=== PATIENT | male | born 1980 | race American Indian/Alaskan Native ===

== ENCOUNTER 2024-07-14 15:56 | Emergency (ER) | payer SELFPAY ==
[2024-07-14] MEDS: Sodium Chloride 0.9% 1,000 ML IV ONE (16:15)
[2024-07-14 16:21] LABS: BASOPHILS PERCENT AUTO 0.3 % (0.0-1.0); EOSINOPHILS PERCENT AUTO 2.2 % (1.0-3.0); HEMATOCRIT 46.8 % (40.0-54.0); HEMOGLOBIN 15.4 g/dL (14.0-18.0); LYMPHOCYTES PERCENT AUTO 36.2 % (20.5-50.1); MEAN CORPUSCULAR HEMOGLOBIN 31.4 pg (27.0-34.0); MEAN CORPUSCULAR HGB CONC 32.9 g/dL (33.0-35.0); MEAN CORPUSCULAR VOLUME 95.5 fL (80-100); MONOCYTES PERCENT AUTO 5.3 % (2-8); PLATELET COUNT,PLT 281 10^3/uL (150-450); WHITE BLOOD CELL COUNT,WBC 6.4 10^3/uL (5.0-10.0)
[2024-07-14 16:29] LABS: APPEARANCE,URINE CLEAR (CLEAR); BILIRUBIN,URINE NEGATIVE (NEGATIVE); GLUCOSE,URINE NEGATIVE (NEGATIVE); KETONES,URINE NEGATIVE (NEGATIVE); LEUKOCYTE ESTERASE,URINE NEGATIVE (NEGATIVE); NITRITE,URINE NEGATIVE (NEGATIVE); OCCULT BLOOD,URINE NEGATIVE (NEGATIVE); PH,URINE 5.5 (5.0-9.0); PROTEIN,URINE NEGATIVE (NEGATIVE); UROBILINOGEN,URINE 0.2 mg/dL (0.2-1.0)
[2024-07-14 16:30] LABS: COLOR,URINE LIGHT YELLOW (YELLOW)
[2024-07-14] MEDS: Iopamidol 612 MG/ML 100 ML Bottle IVPUSH ONE (16:31)
[2024-07-14 16:32] LABS: AMPHETAMINES,URINE NEGATIVE (NEGATIVE); BARBITURATES,URINE NEGATIVE (NEGATIVE); BENZODIAZEPINE,URINE NEGATIVE (NEGATIVE); MDMA (ECSTASY), URINE NEGATIVE (NEGATIVE); METHADONE,URINE NEGATIVE (NEGATIVE); METHAMPHETAMINES,URINE POSITIVE (NEGATIVE); OPIATES,URINE NEGATIVE (NEGATIVE); OXYCODONE,URINE NEGATIVE (NEGATIVE); PHENCYCLIDINE,URINE NEGATIVE (NEGATIVE); TCA,URINE NEGATIVE (NEGATIVE)
[2024-07-14 16:46] LABS: ALBUMIN 3.5 g/dL (3.4-5.0); ANION GAP 11.7 mEq/L (7-13); BILIRUBIN TOTAL 0.3 mg/dL (0.2-1.0); BUN/CREATININE RATIO 15.5 (No establ ref range); CALCIUM 8.7 mg/dL (8.5-10.1); CREATININE 0.71 mg/dL (0.70-1.30); EST CRCL DRUG DOSING (CG) 137.12 mL/min; MAGNESIUM 2.1 mg/dL (1.8-2.4); POTASSIUM,K 3.7 mmol/L (3.5-5.1)
[2024-07-14 16:47] LABS: LACTIC ACID 1.8 mmol/L (0.4-2.0)
[2024-07-14] MEDS: MVI, Adult with Vitamin K 10 ML, Folic Acid 1 MG, Thiamine 100 MG in Lactated Ringers 1... IV ONE (17:32)
== END 2024-07-14 18:37 | disposition home or self-care (01) ==
LOC: DL.ED 15:56 → MERGE 15:56 → DL.ED 18:37
DX: F10.120 Alcohol abuse with intoxication, uncomplicated (principal); F15.10 Other stimulant abuse, uncomplicated; I10 Essential (primary) hypertension; F17.210 Nicotine dependence, cigarettes, uncomplicated; Z90.49 Acquired absence of other specified parts of digestive tract; Y90.9 Presence of alcohol in blood, level not specified
CPT/HCPCS: 36415; 70450; 71260; 72125; 74177; 80053; 80305; 80307; 81003; 83605; 83690; 83735; 84484; 85025; 93005; 96365; 99284; J3411; J7030; J7120; Q9967; J3490

== ENCOUNTER 2025-07-04 19:40 | Emergency (ER) | payer SELFPAY ==
[2025-07-04] MEDS ORDERED: Sodium Chloride 0.9% 10 ML Syringe FLUSH PRN (20:00)
[2025-07-04 20:24] LABS: BASOPHILS PERCENT AUTO 0.3 % (0.0-1.0); EOSINOPHILS PERCENT AUTO 1.2 % (1.0-3.0); LYMPHOCYTES PERCENT AUTO 21.2 % (20.5-50.1); MONOCYTES PERCENT AUTO 8.6 % (2-8); NEUTROPHILS PERCENT AUTO 68.7 % (42.2-75.2); PLATELET COUNT,PLT 252 10^3/uL (150-450); RED BLOOD CELL COUNT 4.87 10^6/uL (4.6-6.2); WHITE BLOOD CELL COUNT,WBC 6.6 10^3/uL (5.0-10.0)
[2025-07-04 20:41] LABS: AMPHETAMINES,URINE NEGATIVE (NEGATIVE); BARBITURATES,URINE NEGATIVE (NEGATIVE); MDMA (ECSTASY), URINE NEGATIVE (NEGATIVE); METHAMPHETAMINES,URINE POSITIVE (NEGATIVE); OPIATES,URINE NEGATIVE (NEGATIVE); OXYCODONE,URINE NEGATIVE (NEGATIVE); PHENCYCLIDINE,URINE NEGATIVE (NEGATIVE); TCA,URINE NEGATIVE (NEGATIVE)
[2025-07-04 20:48] LABS: LACTIC ACID 1.1 mmol/L (0.4-2.0)
[2025-07-04 20:56] LABS: A/G RATIO 0.9; ALANINE AMINOTRANSFERASE,ALT 152 U/L (16-63); ASPARTATE AMNIOTRANSFERASE,AST 105 U/L (15-37); BILIRUBIN TOTAL 0.5 mg/dL (0.2-1.0); BLOOD UREA NITROGEN,BUN 16 mg/dL (7-18); CARBON DIOXIDE,CO2 28 mmol/L (21-32); CHLORIDE,CL 101 mmol/L (98-107); CREATININE 0.83 mg/dL (0.70-1.30); EST CRCL DRUG DOSING (CG) 107.86 mL/min; POTASSIUM,K 4.7 mmol/L (3.5-5.1); PROTEIN TOTAL,TP 7.5 g/dL (6.4-8.2); SODIUM,NA 137 mmol/L (136-145)
[2025-07-04 20:57] LABS: ESTIMATED GFR 112 mL/min (>=60); ETHANOL BLOOD MEDICAL < 3 mg/dL (0)
[2025-07-04 21:02] LABS: INR 0.9 (0.9-1.2); PTT,PARTIAL THROMBOPLSTIN TIME 23.4 SEC (22.0-34.0)
[2025-07-04 21:32] LABS: GLUCOSE RANDOM 121 mg/dL (70-99)
== END 2025-07-04 21:30 | disposition home or self-care (01) ==
LOC: DL.ED 19:40
DX: R55 Syncope and collapse (principal); I10 Essential (primary) hypertension; Z90.49 Acquired absence of other specified parts of digestive tract
CPT/HCPCS: 36415; 70450; 80053; 80305; 80307; 83605; 83735; 84484; 85025; 85610; 85730; 93005; 93010; 99284; A9270

== ENCOUNTER 2025-08-27 01:25 | Emergency (ER) | payer SELFPAY ==
[2025-08-27] MEDS ORDERED: Sodium Chloride 0.9% 10 ML Syringe FLUSH PRN (01:44)
[2025-08-27 01:54] LABS: BASOPHILS PERCENT AUTO 0.3 % (0.0-1.0); EOSINOPHILS PERCENT AUTO 3.1 % (1.0-3.0); LYMPHOCYTES PERCENT AUTO 40.9 % (20.5-50.1); MONOCYTES PERCENT AUTO 8.5 % (2-8); NEUTROPHILS PERCENT AUTO 47.2 % (42.2-75.2); PLATELET COUNT,PLT 242 10^3/uL (150-450); RED BLOOD CELL COUNT 4.46 10^6/uL (4.6-6.2); WHITE BLOOD CELL COUNT,WBC 6.7 10^3/uL (5.0-10.0)
[2025-08-27 02:05] LABS: A/G RATIO 0.9; ALANINE AMINOTRANSFERASE,ALT 424.0 U/L (16-63); ASPARTATE AMNIOTRANSFERASE,AST 263.0 U/L (15-37); BILIRUBIN TOTAL 0.4 mg/dL (0.2-1.0); BLOOD UREA NITROGEN,BUN 16.0 mg/dL (7-18); CARBON DIOXIDE,CO2 25.0 mmol/L (21-32); CHLORIDE,CL 106.0 mmol/L (98-107); CREATININE 0.83 mg/dL (0.70-1.30); EST CRCL DRUG DOSING (CG) 108.4 mL/min; ESTIMATED GFR 112.0 mL/min (>=60); ETHANOL BLOOD MEDICAL 274.0 mg/dL (0); GLUCOSE RANDOM 106.0 mg/dL (70-99); POTASSIUM,K 3.7 mmol/L (3.5-5.1); PROTEIN TOTAL,TP 7.4 g/dL (6.4-8.2); SODIUM,NA 141.0 mmol/L (136-145)
[2025-08-27 02:08] LABS: LACTIC ACID 1.6 mmol/L (0.4-2.0)
[2025-08-27] MEDS: Iopamidol 755 Mg/ML 100 ML Bottle IVPUSH ONE (02:41)
== END 2025-08-27 04:18 | disposition home or self-care (01) ==
LOC: DL.ED 01:25
DX: R10.84 Generalized abdominal pain (principal); R74.01 Elevation of levels of liver transaminase levels; I10 Essential (primary) hypertension; F10.120 Alcohol abuse with intoxication, uncomplicated; Z90.49 Acquired absence of other specified parts of digestive tract
CPT/HCPCS: 36415; 74177; 80053; 80307; 83605; 83690; 83735; 85025; 99284; 99285; Q9967

== ENCOUNTER 2025-11-24 23:11 | Emergency (ER) | payer SELFPAY ==
[2025-11-24] MEDS: Etomidate 2 MG/ML 20 ML SDV IVPUSH ONE (23:36)
[2025-11-24] MEDS: Rocuronium 100 MG/10 ML MDV IVPUSH ONE (23:37)
[2025-11-25] MEDS ORDERED: Sodium Chloride 0.9% 10 ML Syringe FLUSH PRN (00:17)
[2025-11-25 00:29] LABS: A/G RATIO 1.0; ALANINE AMINOTRANSFERASE,ALT 78 U/L (16-63); ASPARTATE AMNIOTRANSFERASE,AST 45 U/L (15-37); BILIRUBIN TOTAL 0.3 mg/dL (0.2-1.0); BLOOD UREA NITROGEN,BUN 14 mg/dL (7-18); CARBON DIOXIDE,CO2 25 mmol/L (21-32); CHLORIDE,CL 106 mmol/L (98-107); CREATININE 0.73 mg/dL (0.70-1.30); ESTIMATED GFR 116 mL/min (>=60); GLUCOSE RANDOM 105 mg/dL (70-99); POTASSIUM,K 3.7 mmol/L (3.5-5.1); PROTEIN TOTAL,TP 8.0 g/dL (6.4-8.2); SODIUM,NA 144 mmol/L (136-145)
[2025-11-25 00:30] LABS: BASOPHILS PERCENT AUTO 0.3 % (0.0-1.0); EOSINOPHILS PERCENT AUTO 1.2 % (1.0-3.0); LYMPHOCYTES PERCENT AUTO 38.5 % (20.5-50.1); MONOCYTES PERCENT AUTO 4.6 % (2-8); NEUTROPHILS PERCENT AUTO 55.4 % (42.2-75.2); PLATELET COUNT,PLT 282 10^3/uL (150-450); RED BLOOD CELL COUNT 4.89 10^6/uL (4.6-6.2); WHITE BLOOD CELL COUNT,WBC 7.4 10^3/uL (5.0-10.0)
[2025-11-25 00:33] LABS: APPEARANCE,URINE CLEAR (CLEAR); GLUCOSE,URINE NEGATIVE (NEGATIVE); OCCULT BLOOD,URINE NEGATIVE (NEGATIVE)
[2025-11-25] MEDS: Ketamine 500 mg/10 ML MDV IVPUSH ONE (00:34)
[2025-11-25 00:38] LABS: AMPHETAMINES,URINE POSITIVE (NEGATIVE); BARBITURATES,URINE NEGATIVE (NEGATIVE); MDMA (ECSTASY), URINE NEGATIVE (NEGATIVE); METHAMPHETAMINES,URINE POSITIVE (NEGATIVE); OPIATES,URINE NEGATIVE (NEGATIVE); OXYCODONE,URINE NEGATIVE (NEGATIVE); PHENCYCLIDINE,URINE NEGATIVE (NEGATIVE); TCA,URINE NEGATIVE (NEGATIVE)
[2025-11-25 00:38] LABS: ETHANOL BLOOD MEDICAL 313 mg/dL (0)
[2025-11-25] MEDS: fentaNYL 100 MCG/2 ML SDV IVPUSH ONE (00:50)
[2025-11-25] MEDS: propofoL 1,000 MG/100 ML 100 ML IV SCH (01:04)
[2025-11-25] MEDS: fentaNYL 100 MCG/2 ML SDV ONE (03:55)
[2025-11-25] MEDS: propofoL 1,000 MG/100 ML 100 ML ONE (03:55)
== END 2025-11-25 02:01 ==
LOC: EDBD → DL.ED 23:11 → MERGE 23:11 → DL.ED 11-25 02:01
DX: T71.162A Asphyxiation due to hanging, intentional self-harm, initial encounter (principal)
CPT/HCPCS: 31500; 36415; 51702; 70450; 71045; 72125; 80053; 80305-QW; 80307; 81003; 85025; 93010; 96365; 96366; 96368; 96375; 99291; 99291-25; 99292; G0390; J2312; J2704; J3010; J3490; J7040